=== PATIENT | male | born 1975 | race African-American/Black ===

== ENCOUNTER 2020-10-02 23:02 | Observation (INO) | payer MEDICARE ==
[2020-10-02 23:44] LABS: #Eosinphils 0.1 10x3/uL (0.0-0.5); #Monocytes 0.3 10x3/uL (0.0-1.1); %Basophils 0.6 % (0.0-2.0); %Eosinophils 2.3 % (0.0-6.0); %Lymphocytes 33.8 % (18.0-47.0); %Monocytes 6.5 % (0.0-10.0); %Neutrophils 56.4 % (40.0-75.0); Hemoglobin 12.7 g/dL (13.5-17.5); Mean Corpuscular Hemoglobin 23.8 pg (27.0-33.0); Mean Corpuscular Volume 70.2 fl (81.2-95.1); Mean Platelet Volume 9.7 fl (7.4-10.4); Platelet Count 218 10x3/uL (150-450); RBC Distribution Width 14.6 % (11.5-14.5); Red Blood Cell (RBC) Count 5.33 10x6/uL (4.32-5.72); White Blood Cell (WBC) Count 5.3 10x3/uL (3.5-10.5)
[2020-10-02 23:59] LABS: ALT (SGPT) 30 U/L (8-55); AST (SGOT) 27 U/L (5-34); Albumin 3.4 g/dL (3.5-5.0); Alkaline Phosphatase 75 U/L (40-110); Anion Gap 10 mmol/L (10-20); BUN (Urea Nitrogen) 8 mg/dL (8.9-20.6); Bilirubin, Total 0.2 mg/dL (0.2-1.2); CK (CPK) 604 U/L (30-200); Calc. Creatinine Clearance 0 mL/min (70-130); Calcium 8.6 mg/dL (7.8-10.44); Carbon Dioxide 28 mmol/L (22-29); Chloride 105 mmol/L (98-107); Globulin 2.6 g/dL (2.4-3.5); Glucose 142 mg/dL (70-105); Potassium 3.5 mmol/L (3.5-5.1); Sodium 139 mmol/L (136-145)
[2020-10-03 02:21] LABS: #Eosinphils 0.1 10x3/uL (0.0-0.5); #Monocytes 0.5 10x3/uL (0.0-1.1); #Neutrophils 3.4 10x3/uL (1.5-8.4); %Basophils 0.7 % (0.0-2.0); %Lymphocytes 31.4 % (18.0-47.0); %Monocytes 8.9 % (0.0-10.0); %Neutrophils 56.7 % (40.0-75.0); Hemoglobin 12.8 g/dL (13.5-17.5); Mean Corpuscular HGB CONC 34.4 g/dL (32.0-36.0); Mean Corpuscular Hemoglobin 23.8 pg (27.0-33.0); Mean Corpuscular Volume 69.3 fl (81.2-95.1); Platelet Count 234 10x3/uL (150-450); RBC Distribution Width 14.7 % (11.5-14.5); Red Blood Cell (RBC) Count 5.37 10x6/uL (4.32-5.72); White Blood Cell (WBC) Count 5.9 10x3/uL (3.5-10.5)
[2020-10-03 02:31] VITALS: BMI 43.6
[2020-10-03 02:31] LABS: Troponin I Less than 0.010 ng/mL (< 0.028)
[2020-10-03 02:32] LABS: Anion Gap 12 mmol/L (10-20); BUN (Urea Nitrogen) 9 mg/dL (8.9-20.6); Calc. Creatinine Clearance 179 mL/min (70-130); Calcium 8.6 mg/dL (7.8-10.44); Carbon Dioxide 28 mmol/L (22-29); Cardiac Risk 3.6 (Less than 4.5); Chloride 106 mmol/L (98-107); Cholesterol 141 mg/dl (< 200 Desired); Glucose 91 mg/dL (70-105); HDL Cholesterol 39 mg/dL (>60 Neg Risk); LDL Cholesterol, Calculated 86 mg/dL; Magnesium 1.9 mg/dL (1.6-2.6); Potassium 3.8 mmol/L (3.5-5.1); Sodium 142 mmol/L (136-145); Triglycerides 80 mg/dL (Less than 150)
[2020-10-03 02:37] LABS: Platelet Morphology Comment Appears Adequate
[2020-10-03 02:39] LABS: Anisocytosis SLIGHT = 6-15 cells (100X) (0-5/hpf); Microcytosis SLIGHT = 6-15 cells (100X) (0-5/hpf); Target Cells SLIGHT = 2-5 cells (100X) (0-1/hpf)
[2020-10-03] MEDS: Nitroglycerin 2% Ointment 1 INCH/1 GM Packet TOP SCH ×2 (06:45→12:50)
[2020-10-03 08:12] LABS: Troponin I Less than 0.010 ng/mL (< 0.028)
[2020-10-03] MEDS ORDERED: Enoxaparin Sodium 40 MG/0.4 ML SYRINGE SC SCH (09:00)
[2020-10-03] MEDS ORDERED: Lisinopril 20 MG TAB PO SCH (09:00)
[2020-10-03] MEDS ORDERED: Benztropine 1 MG TAB PO SCH ×2 (09:00→21:00)
[2020-10-03] MEDS ORDERED: Aspirin 325 mg Enteric Coated Tablet PO SCH (09:00)
[2020-10-03] MEDS ORDERED: Metoprolol Tartrate 25 MG TAB PO SCH (09:00)
[2020-10-03 11:17] LABS: Hemoglobin A1c 5.9 % (4.0-6.0)
[2020-10-03] MEDS ORDERED: Acetaminophen 325 MG TAB PO PRN (12:43)
[2020-10-03 16:55] VITALS: BP 109/70; TEMP 98.7
[2020-10-03] MEDS ORDERED: hydrOXYzine 25 MG TAB PO SCH (21:00)
[2020-10-03] MEDS ORDERED: Atorvastatin Calcium 40 MG TAB PO SCH (21:00)
== END 2020-10-03 18:30 | disposition home or self-care (01) ==
LOC: CSHERS 23:02 → CSHTELE 10-03 01:40
PROVIDERS: ADMIT Internal Medicine; ATTEND Internal Medicine
DX: R07.9 Chest pain, unspecified (principal); I10 Essential (primary) hypertension; F20.9 Schizophrenia, unspecified; Z79.899 Other long term (current) drug therapy; E11.9 Type 2 diabetes mellitus without complications; F17.210 Nicotine dependence, cigarettes, uncomplicated
CPT/HCPCS: 71045; 80048; 80053; 80061; 82550 ×2; 82962; 83036; 83735; 84484 ×3; 85025 ×2; 85379; 93005; 93306; 96372; 99285; G0378; 36415; 36416; 93010; J1650

== ENCOUNTER 2021-04-16 22:00 | Emergency (ER) | payer MEDICARE ==
[2021-04-16] MEDS ORDERED: Ziprasidone 20 MG CAP ONE (22:24)
[2021-04-16 22:50] LABS: Acetaminophen Less than 6.0 mcg/mL (10.0-30.0); Alcohol Less than 10 mg/dL (Less than 10); Salicylate Less than 8.0 mg/dL (15.0-30.0)
[2021-04-16 22:51] LABS: ALT (SGPT) 49 U/L (8-55); AST (SGOT) 36 U/L (5-34); Albumin 3.9 g/dL (3.5-5.0); Alkaline Phosphatase 84 U/L (40-110); Anion Gap 14 mmol/L (10-20); BUN (Urea Nitrogen) 11 mg/dL (8.9-20.6); Bilirubin, Total 0.3 mg/dL (0.2-1.2); Calc. Creatinine Clearance 0 mL/min (70-130); Carbon Dioxide 22 mmol/L (22-29); Chloride 107 mmol/L (98-107); Globulin 3.2 g/dL (2.4-3.5); Glucose 136 mg/dL (70-105); Potassium 3.6 mmol/L (3.5-5.1); Protein, Total 7.1 g/dL (6.0-8.3); Sodium 139 mmol/L (136-145)
[2021-04-16 22:52] LABS: #Eosinphils 0.2 10x3/uL (0.0-0.5); #Monocytes 0.6 10x3/uL (0.0-1.1); #Neutrophils 2.8 10x3/uL (1.5-8.4); %Basophils 0.6 % (0.0-2.0); %Eosinophils 2.6 % (0.0-6.0); %Lymphocytes 43.4 % (18.0-47.0); %Monocytes 9.1 % (0.0-10.0); %Neutrophils 44.1 % (40.0-75.0); Hemoglobin 13.5 g/dL (13.5-17.5); Mean Corpuscular HGB CONC 33.5 g/dL (32.0-36.0); Mean Corpuscular Volume 71.7 fl (81.2-95.1); Mean Platelet Volume 9.8 fl (7.4-10.4); Platelet Count 257 10x3/uL (150-450); RBC Distribution Width 16.3 % (11.5-14.5); Red Blood Cell (RBC) Count 5.62 10x6/uL (4.32-5.72); White Blood Cell (WBC) Count 6.2 10x3/uL (3.5-10.5)
[2021-04-16 23:17] LABS: Amphetamine Not Detected (NotDetected); Barbiturates Screen Not Detected (NotDetected); Benzodiazepine Screen Not Detected (NotDetected); Cocaine Metabolite Screen Not Detected (NotDetected); Methadone Not Detected (NotDetected); Methamphetamine Not Detected (NotDetected); Opiate Screen Not Detected (NotDetected); Oxycodone Screen Not Detected (NotDetected); Phencyclidine (PCP) Not Detected (NotDetected); THC/Cannabinoid Screen Detected (NotDetected); Tricyclic Screen Not Detected (NotDetected)
== END 2021-04-17 02:34 | disposition home or self-care (01) ==
LOC: CSHERS 22:00
DX: F23 Brief psychotic disorder (principal); F17.210 Nicotine dependence, cigarettes, uncomplicated
CPT/HCPCS: 80053; 80306; 80307; 84443; 85025; 93005

== ENCOUNTER 2021-05-25 15:53 | Emergency (ER) | payer MEDICARE ==
[2021-05-25] MEDS ORDERED: Ventolin HFA Inhaler 60 PUFF INHALER ONE (16:34)
[2021-05-25 16:46] LABS: #Eosinphils 0.3 10x3/uL (0.0-0.5); #Monocytes 0.5 10x3/uL (0.0-1.1); #Neutrophils 3.2 10x3/uL (1.5-8.4); %Basophils 0.5 % (0.0-2.0); %Eosinophils 4.6 % (0.0-6.0); %Lymphocytes 29.2 % (18.0-47.0); %Monocytes 8.9 % (0.0-10.0); %Neutrophils 56.6 % (40.0-75.0); Hemoglobin 12.9 g/dL (13.5-17.5); Mean Corpuscular HGB CONC 32.7 g/dL (32.0-36.0); Mean Corpuscular Hemoglobin 23.4 pg (27.0-33.0); Mean Corpuscular Volume 71.4 fl (81.2-95.1); Mean Platelet Volume 10.1 fl (7.4-10.4); Platelet Count 258 10x3/uL (150-450); RBC Distribution Width 15.8 % (11.5-14.5); Red Blood Cell (RBC) Count 5.52 10x6/uL (4.32-5.72); White Blood Cell (WBC) Count 5.6 10x3/uL (3.5-10.5)
[2021-05-25 17:06] LABS: ALT (SGPT) 29 U/L (8-55); AST (SGOT) 23 U/L (5-34); Albumin 3.9 g/dL (3.5-5.0); Alkaline Phosphatase 84 U/L (40-110); Anion Gap 13 mmol/L (10-20); BUN (Urea Nitrogen) 5 mg/dL (8.9-20.6); Bilirubin, Total 0.4 mg/dL (0.2-1.2); Calc. Creatinine Clearance 0 mL/min (70-130); Calcium 8.9 mg/dL (7.8-10.44); Carbon Dioxide 25 mmol/L (22-29); Chloride 106 mmol/L (98-107); Globulin 2.8 g/dL (2.4-3.5); Glucose 157 mg/dL (70-105); Potassium 3.8 mmol/L (3.5-5.1); Protein, Total 6.7 g/dL (6.0-8.3); Sodium 140 mmol/L (136-145)
[2021-05-25 17:15] LABS: SARS-CoV-2 NAA Rapid Test Not Detected (NotDetected)
== END 2021-05-25 18:55 | disposition home or self-care (01) ==
LOC: CSHERS 15:53
DX: J45.909 Unspecified asthma, uncomplicated (principal); B34.9 Viral infection, unspecified; I10 Essential (primary) hypertension; F17.210 Nicotine dependence, cigarettes, uncomplicated; Z86.73 Personal history of transient ischemic attack (TIA), and cerebral infarction without residual deficits; Z20.822 Contact with and (suspected) exposure to COVID-19
CPT/HCPCS: 0240U; 71045; 80053; 84484; 85025; 93005; 94640 ×2; 94664; 94760; 99285

== ENCOUNTER 2021-06-09 14:38 | Emergency (ER) | payer MEDICARE ==
[2021-06-09] MEDS ORDERED: diphenhydrAMINE 25 MG CAP ONE (17:12)
[2021-06-09] MEDS ORDERED: Ketorolac Tromethamine 30 MG/ML VIAL ONE (17:12)
== END 2021-06-09 17:25 | disposition home or self-care (01) ==
LOC: CSHERS 14:38
DX: R21 Rash and other nonspecific skin eruption (principal); L25.9 Unspecified contact dermatitis, unspecified cause; I10 Essential (primary) hypertension; F17.210 Nicotine dependence, cigarettes, uncomplicated; Z86.73 Personal history of transient ischemic attack (TIA), and cerebral infarction without residual deficits; Z79.899 Other long term (current) drug therapy
CPT/HCPCS: 96372; 99283; J1885

== ENCOUNTER 2021-10-15 21:57 | Emergency (ER) | payer MEDICARE | END 2021-10-16 00:14 | disposition home or self-care (01) | LOC: CSHERS 21:57 | DX: M25.562 Pain in left knee (principal); I10 Essential (primary) hypertension; F17.210 Nicotine dependence, cigarettes, uncomplicated; Z79.899 Other long term (current) drug therapy ==

== ENCOUNTER 2021-11-18 23:22 | Emergency (ER) | payer MEDICARE ==
[2021-11-19] MEDS ORDERED: HYDROcodone/Acetaminophen 10/325 mg Tablet ONE (00:21)
== END 2021-11-19 01:30 | disposition home or self-care (01) ==
LOC: CSHERS 23:22
DX: M25.562 Pain in left knee (principal); I10 Essential (primary) hypertension; F17.210 Nicotine dependence, cigarettes, uncomplicated

== ENCOUNTER 2021-11-28 11:22 | Emergency (ER) | payer MEDICARE ==
[2021-11-28 13:28] LABS: #Basophils 0.1 10x3/uL (0.0-0.2); #Eosinphils 0.1 10x3/uL (0.0-0.5); #Monocytes 0.6 10x3/uL (0.0-1.1); #Neutrophils 4.7 10x3/uL (1.5-8.4); %Basophils 0.7 % (0.0-2.0); %Eosinophils 0.9 % (0.0-6.0); %Lymphocytes 23.9 % (18.0-47.0); %Monocytes 7.8 % (0.0-10.0); %Neutrophils 66.4 % (40.0-75.0); Hemoglobin 13.7 g/dL (13.5-17.5); Mean Corpuscular HGB CONC 34.5 g/dL (32.0-36.0); Mean Corpuscular Hemoglobin 23.3 pg (27.0-33.0); Mean Corpuscular Volume 67.6 fl (81.2-95.1); Mean Platelet Volume 10.2 fl (7.4-10.4); Platelet Count 241 10x3/uL (150-450); RBC Distribution Width 15.6 % (11.5-14.5); Red Blood Cell (RBC) Count 5.87 10x6/uL (4.32-5.72)
[2021-11-28 13:41] LABS: ALT (SGPT) 30 U/L (8-55); AST (SGOT) 21 U/L (5-34); Albumin 3.9 g/dL (3.5-5.0); Alkaline Phosphatase 83 U/L (40-110); Anion Gap 13 mmol/L (10-20); BUN (Urea Nitrogen) 8 mg/dL (8.9-20.6); Bilirubin, Total 0.4 mg/dL (0.2-1.2); Calc. Creatinine Clearance 0 mL/min (70-130); Calcium 9.4 mg/dL (7.8-10.44); Carbon Dioxide 25 mmol/L (22-29); Chloride 104 mmol/L (98-107); Globulin 3.1 g/dL (2.4-3.5); Glucose 145 mg/dL (70-105); Potassium 3.5 mmol/L (3.5-5.1); Sodium 138 mmol/L (136-145)
[2021-11-28 13:45] LABS: Acetaminophen Less than 10.0 mcg/mL (10.0-30.0); Alcohol Less than 10 mg/dL (Less than 10); Salicylate Less than 8.0 mg/dL (15.0-30.0)
[2021-11-28 13:57] LABS: Amphetamine Not Detected (NotDetected); Barbiturates Screen Not Detected (NotDetected); Benzodiazepine Screen Not Detected (NotDetected); Cocaine Metabolite Screen Not Detected (NotDetected); Methadone Not Detected (NotDetected); Methamphetamine Not Detected (NotDetected); Opiate Screen Not Detected (NotDetected); Oxycodone Screen Not Detected (NotDetected); Phencyclidine (PCP) Not Detected (NotDetected); THC/Cannabinoid Screen Not Detected (NotDetected); Tricyclic Screen Not Detected (NotDetected)
[2021-11-28 14:07] LABS: Microcytosis MARKED = >30 cells (100X) (0-5/hpf)
[2021-11-28 15:29] LABS: Bilirubin Neg (Negative); Blood, Urine Negative (Negative); Clarity Clear (Clear); Glucose, Urine (Dipstick) Normal (Negative); Ketone, Urine Negative (Negative); Leukocyte Negative (Negative); Nitrite Negative (Negative); Protein, Urine (Dipstick) Negative (Neg-Trace); Urobilinogen Normal mg/dL (Less than 2)
== END 2021-11-28 15:18 | disposition home or self-care (01) ==
LOC: CSHERS 11:22
DX: F10.10 Alcohol abuse, uncomplicated (principal); I10 Essential (primary) hypertension; F17.210 Nicotine dependence, cigarettes, uncomplicated
CPT/HCPCS: 36415; 80053; 80306; 80307; 81003; 84443; 85025; 99283

== ENCOUNTER 2022-01-26 10:37 | Emergency (ER) | payer MEDICARE ==
[2022-01-26] MEDS ORDERED: Ketorolac Tromethamine 30 MG/ML VIAL ONE (11:19)
[2022-01-26] MEDS ORDERED: predniSONE 20 MG TAB ONE (11:19)
== END 2022-01-26 11:22 | disposition home or self-care (01) ==
LOC: CSHERS 10:37
DX: M17.11 Unilateral primary osteoarthritis, right knee (principal); M17.12 Unilateral primary osteoarthritis, left knee; I10 Essential (primary) hypertension
CPT/HCPCS: 96372; 99283; J1885; J7512

== ENCOUNTER 2022-02-10 16:29 | Emergency (ER) | payer MEDICARE ==
[2022-02-10] MEDS ORDERED: Lidocaine 5% Patch TD SCH (18:45)
[2022-02-10] MEDS ORDERED: Ketorolac Tromethamine 30 MG/ML VIAL ONE (18:48)
[2022-02-10] MEDS ORDERED: Cyclobenzaprine 10 MG TAB ONE (19:03)
[2022-02-11] MEDS ORDERED: Transdermal Patch Removal TOP SCH (06:45)
== END 2022-02-10 19:30 | disposition home or self-care (01) ==
LOC: CSHERS 16:29
DX: M54.50 Low back pain, unspecified (principal); M62.830 Muscle spasm of back; I10 Essential (primary) hypertension; F17.210 Nicotine dependence, cigarettes, uncomplicated; Z86.73 Personal history of transient ischemic attack (TIA), and cerebral infarction without residual deficits
CPT/HCPCS: 99283; J1885

== ENCOUNTER 2022-03-01 20:29 | Emergency (ER) | payer MEDICARE ==
[2022-03-01 21:48] LABS: SARS-CoV-2 NAA Rapid Test DETECTED (NotDetected)
== END 2022-03-01 21:58 | disposition home or self-care (01) ==
LOC: CSHERS 20:29
DX: U07.1 COVID-19 (principal); I10 Essential (primary) hypertension; F17.210 Nicotine dependence, cigarettes, uncomplicated
CPT/HCPCS: 99283; U0002

== ENCOUNTER 2022-03-31 20:22 | Emergency (ER) | payer MEDICARE ==
[2022-03-31] MEDS ORDERED: Lorazepam 1 MG TAB ONE (21:07)
[2022-03-31 21:15] LABS: #Basophils 0.1 10x3/uL (0.0-0.2); #Eosinphils 0.1 10x3/uL (0.0-0.5); #Monocytes 0.6 10x3/uL (0.0-1.1); #Neutrophils 3.2 10x3/uL (1.5-8.4); %Basophils 0.8 % (0.0-2.0); %Eosinophils 1.5 % (0.0-6.0); %Lymphocytes 39.4 % (18.0-47.0); %Monocytes 8.5 % (0.0-10.0); %Neutrophils 49.6 % (40.0-75.0); Hemoglobin 14.2 g/dL (13.5-17.5); Mean Corpuscular HGB CONC 34.7 g/dL (32.0-36.0); Mean Corpuscular Hemoglobin 24.3 pg (27.0-33.0); Mean Platelet Volume 9.6 fl (7.4-10.4); Platelet Count 264 10x3/uL (150-450); RBC Distribution Width 17.5 % (11.5-14.5); Red Blood Cell (RBC) Count 5.84 10x6/uL (4.32-5.72); White Blood Cell (WBC) Count 6.5 10x3/uL (3.5-10.5)
[2022-03-31 21:32] LABS: ALT (SGPT) 32 U/L (8-55); AST (SGOT) 31 U/L (5-34); Albumin 4.2 g/dL (3.5-5.0); Alkaline Phosphatase 87 U/L (40-110); Anion Gap 12 mmol/L (10-20); BUN (Urea Nitrogen) 8 mg/dL (8.9-20.6); Bilirubin, Total 0.7 mg/dL (0.2-1.2); Calc. Creatinine Clearance 0 mL/min (70-130); Calcium 9.3 mg/dL (7.8-10.44); Carbon Dioxide 24 mmol/L (22-29); Chloride 104 mmol/L (98-107); Estimated GFR 109; Globulin 3.1 g/dL (2.4-3.5); Glucose 92 mg/dL (70-105); Potassium 3.3 mmol/L (3.5-5.1); Protein, Total 7.3 g/dL (6.0-8.3); Sodium 137 mmol/L (136-145)
== END 2022-03-31 23:00 | disposition home or self-care (01) ==
LOC: CSHERS 20:22
DX: T75.4XXA Electrocution, initial encounter (principal); I10 Essential (primary) hypertension; F17.210 Nicotine dependence, cigarettes, uncomplicated; W86.0XXA Exposure to domestic wiring and appliances, initial encounter
CPT/HCPCS: 80053; 84484; 85025; 93005

== ENCOUNTER 2022-04-14 06:54 | Emergency (ER) | payer MEDICARE ==
[2022-04-14] MEDS ORDERED: Ketorolac Tromethamine 30 MG/ML VIAL ONE (07:59)
[2022-04-14] MEDS ORDERED: Morphine 10 MG/ML VIAL ONE (07:59)
== END 2022-04-14 10:10 | disposition home or self-care (01) ==
LOC: CSHERS 06:54
DX: M54.50 Low back pain, unspecified (principal); I10 Essential (primary) hypertension; F17.210 Nicotine dependence, cigarettes, uncomplicated
CPT/HCPCS: 72100; 96372; J1885; J2270

== ENCOUNTER 2022-04-26 09:07 | Emergency (ER) | payer MEDICARE ==
[2022-04-26 10:23] LABS: SARS-CoV-2 NAA Rapid Test Not Detected (NotDetected)
== END 2022-04-26 11:47 | disposition home or self-care (01) ==
LOC: CSHERS 09:07
DX: J06.9 Acute upper respiratory infection, unspecified (principal); I10 Essential (primary) hypertension; F17.210 Nicotine dependence, cigarettes, uncomplicated; Z20.822 Contact with and (suspected) exposure to COVID-19; Z86.73 Personal history of transient ischemic attack (TIA), and cerebral infarction without residual deficits
CPT/HCPCS: 99284

== ENCOUNTER 2022-05-23 00:21 | Emergency (ER) | payer MEDICARE ==
[2022-05-23 01:15] LABS: #Basophils 0.1 10x3/uL (0.0-0.2); #Eosinphils 0.2 10x3/uL (0.0-0.5); #Monocytes 0.4 10x3/uL (0.0-1.1); #Neutrophils 2.9 10x3/uL (1.5-8.4); %Basophils 0.9 % (0.0-2.0); %Eosinophils 2.8 % (0.0-6.0); %Lymphocytes 43.7 % (18.0-47.0); %Monocytes 6.4 % (0.0-10.0); ALT (SGPT) 39 U/L (8-55); AST (SGOT) 34 U/L (5-34); Albumin 4.2 g/dL (3.5-5.0); Alkaline Phosphatase 102 U/L (40-110); Anion Gap 14 mmol/L (10-20); BUN (Urea Nitrogen) 9 mg/dL (8.9-20.6); Bilirubin, Total 0.3 mg/dL (0.2-1.2); Calc. Creatinine Clearance 0 mL/min (70-130); Calcium 9.2 mg/dL (7.8-10.44); Carbon Dioxide 25 mmol/L (22-29); Chloride 107 mmol/L (98-107); Estimated GFR 109; Glucose 107 mg/dL (70-105); Hemoglobin 14.3 g/dL (13.5-17.5); Mean Corpuscular HGB CONC 34.8 g/dL (32.0-36.0); Mean Corpuscular Hemoglobin 24.2 pg (27.0-33.0); Mean Corpuscular Volume 69.7 fl (81.2-95.1); Mean Platelet Volume 10.3 fl (7.4-10.4); PTT 26.8 sec (22.0-33.0); Platelet Count 247 10x3/uL (150-450); Protein, Total 7.2 g/dL (6.0-8.3); Prothrombin Time 10.5 sec (9.5-12.1); RBC Distribution Width 17.3 % (11.5-14.5); Sodium 142 mmol/L (136-145); White Blood Cell (WBC) Count 6.4 10x3/uL (3.5-10.5)
[2022-05-23] MEDS ORDERED: Aspirin 325 MG TAB ONE (01:34)
[2022-05-23] MEDS ORDERED: Erythromycin Base 0.5% Oint 1 GM TUBE ONE (02:15)
[2022-05-23 02:27] LABS: Platelet Morphology Comment Appears Adequate; RBC Morphology Normal
== END 2022-05-23 02:22 | disposition home or self-care (01) ==
LOC: CSHERS 00:21
DX: R22.2 Localized swelling, mass and lump, trunk (principal); H10.9 Unspecified conjunctivitis; I10 Essential (primary) hypertension; F17.210 Nicotine dependence, cigarettes, uncomplicated
CPT/HCPCS: 36416; 70450; 80053; 84484; 85025; 85610; 85730; 93005

== ENCOUNTER 2022-06-30 12:01 | Emergency (ER) | payer MEDICARE ==
[2022-06-30] MEDS ORDERED: Ketorolac Tromethamine 30 MG/ML VIAL ONE (13:40)
== END 2022-06-30 14:42 | disposition home or self-care (01) ==
LOC: CSHERS 12:01
DX: M25.562 Pain in left knee (principal); G89.29 Other chronic pain; I10 Essential (primary) hypertension; F17.210 Nicotine dependence, cigarettes, uncomplicated
CPT/HCPCS: 96372; J1885

== ENCOUNTER 2022-12-26 22:20 | Emergency (ER) | payer MEDICARE ==
[~2022-12-26 22:20] MED LIST: Iopamidol 300 61% 100 ML VIAL FS ONE
[2022-12-26 23:31] LABS: #Eosinphils 0.1 10x3/uL (0.0-0.5); #Monocytes 0.6 10x3/uL (0.0-1.1); %Basophils 0.5 % (0.0-2.0); %Eosinophils 1.9 % (0.0-6.0); %Monocytes 10.1 % (0.0-10.0); %Neutrophils 47.3 % (40.0-75.0); Hemoglobin 13.4 g/dL (13.5-17.5); Mean Corpuscular HGB CONC 33.9 g/dL (32.0-36.0); Mean Corpuscular Hemoglobin 23.8 pg (27.0-33.0); Mean Corpuscular Volume 70.2 fl (81.2-95.1); Mean Platelet Volume 9.8 fl (7.4-10.4); Platelet Count 328 10x3/uL (150-450); RBC Distribution Width 15.1 % (11.5-14.5); Red Blood Cell (RBC) Count 5.63 10x6/uL (4.32-5.72); White Blood Cell (WBC) Count 6.2 10x3/uL (3.5-10.5)
[2022-12-26] MEDS ORDERED: Ketorolac Tromethamine 30 MG/ML VIAL ONE (23:42)
[2022-12-26] MEDS ORDERED: Famotidine/PF 20 mg/2ml Vial ONE (23:43)
[2022-12-26] MEDS ORDERED: Dicyclomine 20 MG TAB ONE (23:45)
[2022-12-26 23:46] LABS: ALT (SGPT) 20 U/L (8-55); AST (SGOT) 20 U/L (5-34); Albumin 3.8 g/dL (3.5-5.0); Alkaline Phosphatase 75 U/L (40-110); Anion Gap 15 mmol/L (10-20); BUN (Urea Nitrogen) 11 mg/dL (8.9-20.6); Bilirubin, Total 0.2 mg/dL (0.2-1.2); Calc. Creatinine Clearance 0 mL/min (70-130); Calcium 9.2 mg/dL (7.8-10.44); Carbon Dioxide 23 mmol/L (22-29); Chloride 107 mmol/L (98-107); Estimated GFR 107; Glucose 121 mg/dL (70-105); Lipase 11 U/L (8-78); Potassium 3.9 mmol/L (3.5-5.1); Protein, Total 6.8 g/dL (6.0-8.3); Sodium 141 mmol/L (136-145)
== END 2022-12-27 01:18 | disposition home or self-care (01) ==
LOC: CSHERS 22:20
DX: R11.2 Nausea with vomiting, unspecified (principal); K62.5 Hemorrhage of anus and rectum; N28.1 Cyst of kidney, acquired; I11.0 Hypertensive heart disease with heart failure; I50.9 Heart failure, unspecified; F17.210 Nicotine dependence, cigarettes, uncomplicated
CPT/HCPCS: 74177; 80053; 83690; 85025; 93005; 96374; 96375; J1885; Q9967; S0028

== ENCOUNTER 2023-01-24 04:09 | Emergency (ER) | payer MEDICARE ==
[2023-01-24] MEDS ORDERED: Ibuprofen 200 MG TAB ONE (04:46)
[2023-01-24] MEDS ORDERED: HYDROcodone/Acetaminophen 5/325 mg Tablet ONE (04:46)
== END 2023-01-24 05:09 | disposition home or self-care (01) ==
LOC: CSHERS 04:09
DX: S83.92XA Sprain of unspecified site of left knee, initial encounter (principal); I11.0 Hypertensive heart disease with heart failure; I50.9 Heart failure, unspecified; F17.210 Nicotine dependence, cigarettes, uncomplicated; W10.8XXA Fall (on) (from) other stairs and steps, initial encounter
CPT/HCPCS: 99283

== ENCOUNTER 2023-02-02 07:13 | Emergency (ER) | payer MEDICARE ==
[2023-02-02] MEDS ORDERED: Gabapentin 300 MG CAP ONE (08:44)
== END 2023-02-02 09:16 | disposition home or self-care (01) ==
LOC: CSHERS 07:13
DX: G89.29 Other chronic pain (principal); M79.604 Pain in right leg; M54.10 Radiculopathy, site unspecified; I11.0 Hypertensive heart disease with heart failure; I50.9 Heart failure, unspecified; F17.210 Nicotine dependence, cigarettes, uncomplicated; Z79.899 Other long term (current) drug therapy
CPT/HCPCS: 99283

== ENCOUNTER 2023-04-27 17:44 | Emergency (ER) | payer MEDICARE | END 2023-04-27 18:51 | disposition home or self-care (01) | LOC: CSHERS 17:44 | DX: J02.9 Acute pharyngitis, unspecified (principal); I11.0 Hypertensive heart disease with heart failure; I50.9 Heart failure, unspecified; F17.210 Nicotine dependence, cigarettes, uncomplicated | CPT/HCPCS: 87081; 87430; 99283 ==

== ENCOUNTER 2023-06-28 08:31 | Emergency (ER) | payer MEDICARE ==
[2023-06-28] MEDS ORDERED: Proparacaine 0.5% Opth 15 ML BOT ONE (08:52)
[2023-06-28] MEDS ORDERED: Erythromycin Base 0.5% Oint 1 GM TUBE ONE (09:40)
== END 2023-06-28 09:51 | disposition home or self-care (01) ==
LOC: CSHERS 08:31
DX: H10.212 Acute toxic conjunctivitis, left eye (principal); I11.0 Hypertensive heart disease with heart failure; I50.9 Heart failure, unspecified; F17.210 Nicotine dependence, cigarettes, uncomplicated
CPT/HCPCS: 99283

== ENCOUNTER 2023-07-08 08:03 | Emergency (ER) | payer MEDICARE ==
[2023-07-08 08:38] LABS: #Eosinphils 0.1 10x3/uL (0.0-0.5); #Monocytes 0.5 10x3/uL (0.0-1.1); #Neutrophils 2.8 10x3/uL (1.5-8.4); %Basophils 0.8 % (0.0-2.0); %Eosinophils 2.5 % (0.0-6.0); %Lymphocytes 33.5 % (18.0-47.0); %Monocytes 8.9 % (0.0-10.0); %Neutrophils 54.1 % (40.0-75.0); Hematocrit 40.4 % (38.8-50.0); Hemoglobin 14.3 g/dL (13.5-17.5); Mean Corpuscular HGB CONC 35.4 g/dL (32.0-36.0); Mean Corpuscular Hemoglobin 25.5 pg (27.0-33.0); Mean Corpuscular Volume 72.1 fl (81.2-95.1); Mean Platelet Volume 9.7 fl (7.4-10.4); Platelet Count 256 10x3/uL (150-450); RBC Distribution Width 14.5 % (11.5-14.5); White Blood Cell (WBC) Count 5.1 10x3/uL (3.5-10.5)
[2023-07-08 09:35] LABS: Troponin I Less than 0.010 ng/mL (< 0.028)
[2023-07-08 09:46] LABS: ALT (SGPT) 14 U/L (8-55); AST (SGOT) 15 U/L (5-34); Albumin 3.7 g/dL (3.5-5.0); Alkaline Phosphatase 58 U/L (40-110); Anion Gap 14 mmol/L (10-20); BUN (Urea Nitrogen) 13 mg/dL (8.9-20.6); Bilirubin, Total 0.4 mg/dL (0.2-1.2); Calc. Creatinine Clearance 0 mL/min (70-130); Calcium 8.5 mg/dL (7.8-10.44); Carbon Dioxide 20 mmol/L (22-29); Chloride 108 mmol/L (98-107); Estimated GFR 112; Globulin 2.3 g/dL (2.4-3.5); Glucose 102 mg/dL (70-105); Sodium 138 mmol/L (136-145)
== END 2023-07-08 10:30 | disposition home or self-care (01) ==
LOC: CSHERS 08:03
DX: J06.9 Acute upper respiratory infection, unspecified (principal); I11.0 Hypertensive heart disease with heart failure; I50.9 Heart failure, unspecified; F17.210 Nicotine dependence, cigarettes, uncomplicated
CPT/HCPCS: 36415; 71045; 80053; 84484; 85025; 93005; 93010

== ENCOUNTER 2023-08-17 23:11 | Emergency (ER) | payer MEDICARE ==
[2023-08-17] MEDS ORDERED: Lorazepam 2 MG/ML VIAL ONE (23:24)
[2023-08-17] MEDS ORDERED: OLANZapine 2.5 MG TAB ONE (23:33)
[2023-08-17 23:47] LABS: #Basophils 0.1 10x3/uL (0.0-0.2); #Eosinphils 0.2 10x3/uL (0.0-0.5); #Monocytes 0.7 10x3/uL (0.0-1.1); #Neutrophils 3.3 10x3/uL (1.5-8.4); %Basophils 0.8 % (0.0-2.0); %Eosinophils 2.5 % (0.0-6.0); %Lymphocytes 46.3 % (18.0-47.0); %Monocytes 8.9 % (0.0-10.0); %Neutrophils 41.4 % (40.0-75.0); Hematocrit 41.4 % (38.8-50.0); Hemoglobin 14.3 g/dL (13.5-17.5); Mean Corpuscular HGB CONC 34.5 g/dL (32.0-36.0); Mean Corpuscular Hemoglobin 24.6 pg (27.0-33.0); Mean Corpuscular Volume 71.3 fl (81.2-95.1); Mean Platelet Volume 9.8 fl (7.4-10.4); Platelet Count 271 10x3/uL (150-450); RBC Distribution Width 15.9 % (11.5-14.5); Red Blood Cell (RBC) Count 5.81 10x6/uL (4.32-5.72)
[2023-08-17 23:52] LABS: Troponin I Less than 0.010 ng/mL (< 0.028)
[2023-08-17 23:54] LABS: ALT (SGPT) 20 U/L (8-55); AST (SGOT) 24 U/L (5-34); Albumin 3.9 g/dL (3.5-5.0); Alkaline Phosphatase 89 U/L (40-110); Anion Gap 18 mmol/L (10-20); BUN (Urea Nitrogen) 16 mg/dL (8.9-20.6); Bilirubin, Total 0.2 mg/dL (0.2-1.2); Calc. Creatinine Clearance 0 mL/min (70-130); Carbon Dioxide 18 mmol/L (22-29); Chloride 108 mmol/L (98-107); Estimated GFR 85; Globulin 2.7 g/dL (2.4-3.5); Glucose 87 mg/dL (70-105); Potassium 4.4 mmol/L (3.5-5.1); Protein, Total 6.6 g/dL (6.0-8.3); Sodium 140 mmol/L (136-145)
[2023-08-18 00:21] LABS: Microcytosis MODERATE=15-30 cells (100X) (0-5/hpf)
[2023-08-18 00:22] LABS: Platelet Adequacy Comment Appears Adequate; Small Platelets SLIGHT HPF (0-15)
[2023-08-18 00:33] LABS: Acetaminophen Less than 10 mcg/mL (10.0-30.0); Alcohol Less than 10.0 mg/dL (Less than 10); Salicylate Less than 8.0 mg/dL (15.0-30.0)
[2023-08-18 00:57] LABS: Amphetamine Not Detected (NotDetected); Barbiturates Screen Not Detected (NotDetected); Benzodiazepine Screen Not Detected (NotDetected); Cocaine Metabolite Screen Not Detected (NotDetected); Methadone Not Detected (NotDetected); Methamphetamine Not Detected (NotDetected); Opiate Screen Not Detected (NotDetected); Oxycodone Screen Not Detected (NotDetected); Phencyclidine (PCP) Not Detected (NotDetected); THC/Cannabinoid Screen Detected (NotDetected); Tricyclic Screen Not Detected (NotDetected)
[2023-08-18] MEDS ORDERED: OLANZapine 2.5 MG TAB ONE (09:27)
== END 2023-08-18 10:58 | disposition home or self-care (01) ==
LOC: CSHERS 23:11
DX: F20.0 Paranoid schizophrenia (principal); F41.0 Panic disorder [episodic paroxysmal anxiety]; I11.0 Hypertensive heart disease with heart failure; I50.9 Heart failure, unspecified; F17.210 Nicotine dependence, cigarettes, uncomplicated; Z79.899 Other long term (current) drug therapy
CPT/HCPCS: 71045; 80053; 80306; 80307; 83880; 84484; 85025; 93005; 93010; 96374; J2060

== ENCOUNTER 2023-11-20 01:18 | Emergency (ER) | payer MEDICARE, MEDICAID ==
[2023-11-20 02:27] LABS: Prothrombin Time 10.7 sec (9.5-12.1)
[2023-11-20 02:30] LABS: ALT (SGPT) 13 U/L (8-55); AST (SGOT) 14 U/L (5-34); Albumin 3.4 g/dL (3.5-5.0); Alkaline Phosphatase 65 U/L (40-110); Anion Gap 13 mmol/L (10-20); BUN (Urea Nitrogen) 14 mg/dL (8.9-20.6); Bilirubin, Total 0.2 mg/dL (0.2-1.2); Calc. Creatinine Clearance 0 mL/min (70-130); Calcium 9.1 mg/dL (7.8-10.44); Carbon Dioxide 24 mmol/L (22-29); Chloride 107 mmol/L (98-107); Estimated GFR 106; Globulin 2.4 g/dL (2.4-3.5); Glucose 93 mg/dL (70-105); Lipase 14 U/L (8-78); Potassium 4.2 mmol/L (3.5-5.1); Protein, Total 5.8 g/dL (6.0-8.3); Sodium 140 mmol/L (136-145)
[2023-11-20 02:35] LABS: #Basophils 0.04 10x3/uL (0.0-0.2); #Eosinphils 0.12 10x3/uL (0.0-0.5); #Monocytes 0.57 10x3/uL (0.0-1.1); #Neutrophils 1.81 10x3/uL (1.5-8.4); %Basophils 0.8 % (0.0-2.0); %Eosinophils 2.3 % (0.0-6.0); %Lymphocytes 50.8 % (18.0-47.0); %Neutrophils 34.9 % (40.0-75.0); Hematocrit 39.6 % (38.8-50.0); Hemoglobin 14.2 g/dL (13.5-17.5); Mean Corpuscular HGB CONC 35.9 g/dL (32.0-36.0); Mean Corpuscular Hemoglobin 25.2 pg (27.0-33.0); Mean Corpuscular Volume 70.2 fL (81.2-95.1); Mean Platelet Volume 10.5 fL (7.4-10.4); Platelet Count 219 10x3/uL (150-450); RBC Distribution Width 15.4 % (11.5-14.5); Red Blood Cell (RBC) Count 5.64 10x6/uL (4.32-5.72); White Blood Cell (WBC) Count 5.2 10x3/uL (3.5-10.5)
[2023-11-20 02:36] LABS: Troponin I Less than 0.010 ng/mL (< 0.028)
[2023-11-20] MEDS ORDERED: diphenhydrAMINE 50 MG/ML VIAL ONE (03:04)
[2023-11-20] MEDS ORDERED: methylPREDNISolone Sod Succ/PF 125 MG/2 ML VIAL ONE (03:04)
[2023-11-20] MEDS ORDERED: Famotidine/PF 20 mg/2ml Vial ONE (03:07)
[2023-11-20] MEDS ORDERED: EPINEPHrine 1 MG/ML VIAL ONE (03:08)
[2023-11-20 03:27] LABS: Acetaminophen Less than 10 mcg/mL (10.0-30.0); Alcohol Less than 10.0 mg/dL (Less than 10); Salicylate Less than 8.0 mg/dL (15.0-30.0)
[2023-11-20 03:29] LABS: Microcytosis MODERATE=15-30 cells (100X) (0-5/hpf); Platelet Adequacy Comment Platelets Normal; Target Cells SLIGHT = 2-5 cells (100X) (0-1/hpf)
[2023-11-20] MEDS ORDERED: Iopamidol 370 76% 100 ML VIAL ONE (13:02)
== END 2023-11-20 04:35 | disposition home or self-care (01) ==
LOC: CSHERS 01:18
DX: T78.40XA Allergy, unspecified, initial encounter (principal); R06.02 Shortness of breath; F17.210 Nicotine dependence, cigarettes, uncomplicated; I11.0 Hypertensive heart disease with heart failure; I50.9 Heart failure, unspecified
CPT/HCPCS: 71045; 71275; 80053; 80307; 83690; 83735; 83880; 84484; 85025; 85610; 85730; 93005; 96372; 96374; 96375; 99285; J0171; J1200; J2930; Q9967; S0028; 93010

== ENCOUNTER 2023-12-17 09:59 | Emergency (ER) | payer MEDICARE, MEDICAID ==
[2023-12-17] MEDS ORDERED: Acetaminophen 325 MG TAB ONE (10:38)
== END 2023-12-17 10:53 | disposition home or self-care (01) ==
LOC: CSHERS 09:59
DX: M79.631 Pain in right forearm (principal); I11.0 Hypertensive heart disease with heart failure; I50.9 Heart failure, unspecified; F17.210 Nicotine dependence, cigarettes, uncomplicated
CPT/HCPCS: 99283

== ENCOUNTER 2023-12-22 10:41 | Emergency (ER) | payer MEDICARE, MEDICAID | END 2023-12-22 11:35 | disposition home or self-care (01) | LOC: CSHERS 10:41 | DX: B37.2 Candidiasis of skin and nail (principal); I11.0 Hypertensive heart disease with heart failure; I50.9 Heart failure, unspecified; E11.9 Type 2 diabetes mellitus without complications; I25.2 Old myocardial infarction; F17.210 Nicotine dependence, cigarettes, uncomplicated; Z79.899 Other long term (current) drug therapy | CPT/HCPCS: 99282 ==

== ENCOUNTER 2023-12-24 23:06 | Emergency (ER) | payer MEDICARE, MEDICAID | END 2023-12-25 01:43 | disposition home or self-care (01) | LOC: CSHERS 23:06 | DX: S92.512A Displaced fracture of proximal phalanx of left lesser toe(s), initial encounter for closed fracture (principal); I11.0 Hypertensive heart disease with heart failure; I50.9 Heart failure, unspecified; J44.9 Chronic obstructive pulmonary disease, unspecified; F17.210 Nicotine dependence, cigarettes, uncomplicated; Z86.73 Personal history of transient ischemic attack (TIA), and cerebral infarction without residual deficits; Z79.899 Other long term (current) drug therapy; W22.8XXA Striking against or struck by other objects, initial encounter; Y93.89 Activity, other specified ==

== ENCOUNTER 2024-05-23 20:03 | Emergency (ER) | payer MEDICARE, MEDICAID ==
[2024-05-23] MEDS ORDERED: Ondansetron PF 4 MG/2 ML Vial ONE (21:19)
[2024-05-23] MEDS ORDERED: Ketorolac Tromethamine 30 MG (1 mL) VIAL ONE (21:20)
[2024-05-23 22:46] LABS: #Basophils 0.02 10x3/uL (0.0-0.2); #Monocytes 0.42 10x3/uL (0.0-1.1); #Neutrophils 5.03 10x3/uL (1.5-8.4); %Basophils 0.3 % (0.0-2.0); %Eosinophils 3.1 % (0.0-6.0); %Lymphocytes 13.1 % (18.0-47.0); %Monocytes 6.4 % (0.0-10.0); %Neutrophils 76.9 % (40.0-75.0); Hematocrit 41.4 % (38.8-50.0); Hemoglobin 14.1 g/dL (13.5-17.5); Mean Corpuscular HGB CONC 34.1 g/dL (32.0-36.0); Mean Corpuscular Hemoglobin 24.4 pg (27.0-33.0); Mean Corpuscular Volume 71.5 fL (81.2-95.1); Mean Platelet Volume 9.7 fL (7.4-10.4); Platelet Count 218 10x3/uL (150-450); RBC Distribution Width 15.1 % (11.5-14.5); Red Blood Cell (RBC) Count 5.79 10x6/uL (4.32-5.72); White Blood Cell (WBC) Count 6.5 10x3/uL (3.5-10.5)
[2024-05-23 22:49] LABS: ALT (SGPT) 18 U/L (8-55); AST (SGOT) 21 U/L (5-34); Albumin 3.5 g/dL (3.5-5.0); Alkaline Phosphatase 54 U/L (40-110); Anion Gap 10 mmol/L (10-20); BUN (Urea Nitrogen) 14 mg/dL (8.9-20.6); Bilirubin, Total 0.6 mg/dL (0.2-1.2); Calc. Creatinine Clearance 0 mL/min (70-130); Calcium 8.7 mg/dL (7.8-10.44); Carbon Dioxide 25 mmol/L (22-29); Chloride 108 mmol/L (98-107); Estimated GFR 109; Globulin 2.6 g/dL (2.4-3.5); Glucose 84 mg/dL (70-105); Lipase 71 U/L (8-78); Potassium 3.8 mmol/L (3.5-5.1); Protein, Total 6.1 g/dL (6.0-8.3); Sodium 139 mmol/L (136-145)
== END 2024-05-23 23:10 | disposition home or self-care (01) ==
LOC: CSHERS 20:03
DX: K29.00 Acute gastritis without bleeding (principal); I11.0 Hypertensive heart disease with heart failure; I50.9 Heart failure, unspecified; F17.210 Nicotine dependence, cigarettes, uncomplicated
CPT/HCPCS: 80053; 83690; 85025; 93005; J1885; J2405; 96374; 96375